=== PATIENT | female | born 1975 | race Caucasian/White ===

== ENCOUNTER 2022-03-07 12:33 | Emergency (ER) | payer OTHER, MEDICAID, SELFPAY ==
[2022-03-07 12:34] VITALS: BP 145/101; PULSE 90; RESP 14; TEMP 36.6; O2SAT 98; BMI 37.2
[2022-03-07] MEDS: Morphine 4 MG/ML Syringe IV (13:32)
--- NOTE | 2022-03-07 13:40 | RAD_ITS ---
INDICATION: Injury/Pain EXAMINATION/TECHNIQUE: X-RAY - LEFT XR Ankle Min 3 Views 3 VIEWS COMPARISON: None. FINDINGS: SOFT TISSUES: There is diffuse soft tissue swelling. No radiopaque foreign body. BONES/JOINTS: No acute fracture or subluxation.. Normal alignment. Preservation of the joint space.. There is a plantar calcaneal enthesophyte. There is an additional enthesophyte arising from the posterior calcaneus at the Achilles tendon insertion site. No sclerotic or destructive changes observed. RAD/Ankle min 3 Views IMPRESSION: Diffuse soft tissue swelling. Calcaneal enthesophytes. Electronically Signed: Janelle Parikh MD at 13:56 EST ,
[2022-03-07 13:41] LABS: Absolute Lymphocyte Count 1.67 X10^3/uL (0.83-4.51); Basophil# 0.04 X10^3/uL; Basophil% 0.5 % (0-1); Eosinophil# 0.44 X10^3/uL; Eosinophils% 5.8 % (0-5); Hematocrit 42.8 % (37-47); Hemoglobin 13.7 g/dL (12.0-15.0); Lymphocyte # 1.67 X10^3/ul (0.83-4.51); Lymphocyte % 22.2 % (19-41); Mean Corpuscular Hgb 28.4 pg (27.0-32.0); Mean Corpuscular Volume 88.8 fL (81-99); Mean Platelet Vol. 9.8 fl (6.2-12.0); Monocyte# 0.38 X10^3/uL; NRBC Flagged by Analyzer 0 % (0-5); Neutrophil # 4.97 X10^3/uL (2.7-7.7); Neutrophil % 66.1 % (47-70); Platelet Count 384 K/mm3 (150-450); RBC Distribution Width SD 45.1 fl (35.1-43.9); Red Blood Count 4.82 M/mm3 (4.2-5.4); White Blood Count 7.5 K/mm3 (4.4-11.0)
--- NOTE | 2022-03-07 13:46 | ED.VIS.LOWEX ---
HPI History of Present Illness HPI Narrative: Patient presents with left ankle swelling that began today. Patient states she has possible infection in her right hip. Patient states she had abnormal labs which may have showed an infection in her right hip. Patient is scheduled to have an outpatient procedure to have an arthrocentesis of her right hip to assess for infection. Patient is concerned that this infection may have spread to her left ankle. Patient admits to subjective fevers and chills. Patient denies any redness or warmth. Patient states she is having trouble ambulating due to the swelling. Patient denies any calf pain. Patient denies any trauma or injury. Chief Complaint: Lower Extremity Injury Onset/Context/Timing Onset: Today Context: Sudden Onset Timing: Continuous Quality of Pain: - (Swelling) Location: Left ankle Worsened by: Nothing Relieved by: Nothing Associated Symptoms Associated Symptoms: Negative for Parasthesia, Weakness or Loss of Funtion [facility] Medical History (Updated 03/07/22 @ 15:[address] Jb Loving DO) Absent kidney Absent kidney, acquired Allergy/AdvReac Type Severity Reaction Status Date / Time No Known Allergies Allergy Verified 03/07/22 12:34 Surgical History (Updated 03/07/22 @ 13:[address] Jb Loving DO) History of hysterectomy History of lumpectomy of left breast Hx of cholecystectomy Hx of shoulder surgery Hx of tubal ligation Social History Smoking Status: Unknown if ever smoked ROS ROS ED Constitutional Constitutional ED: Reports fever(s) and subjective; Denies chills Eyes Eyes: Denies blurry vision or change in vision ENT ENT ED: Denies rhinorrhea or sore throat Cardiovascular Cardiovascular: Denies chest pain or palpitations Respiratory/Chest Respiratory/Chest: Denies cough or dyspnea Gastrointestinal Gastrointestinal: Denies nausea or vomiting Genitourinary Genitourinary ED: Denies dysuria or hematuria Musculoskeletal Musculoskeletal: Reports back pain; Denies neck pain Integumentary Denies abscess or rash Neurologic Neurologic: Denies headache(s) or weakness Allergic/Immunologic Allergic/Immunologic ED: Denies mouth swelling or urticaria EXAM Physical Exam Const Vital Signs: 03/07/22 12:34 Temperature 97.8 F Temperature Source Temporal Pulse Rate 90 Respiratory Rate 14 Blood Pressure 145/101 H Blood Pressure Mean 115 Pulse Ox 98 Oxygen Delivery Method Room Air Positive well nourished, well developed and obese General Appearance ED: well developed and NAD Nutritional Appearance: obese HEENT Reports moist mucous membranes normocephalic and atraumatic Neck full ROM and supple Extremity normal to inspection and full ROM Extremity Narrative: There is trace edema of the left ankle. There is no erythema or warmth. There is good range of motion of the left ankle. There is no calf tenderness noted. Pedal pulses are equal bilaterally. Sensation was intact to light touch in all digits. Capillary refill was less than 2 seconds in all digits. Neuro oriented x3, CN's II-XII intact bilaterally, moves all extremities and no sensory deficits noted Sensorium / Orientation: alert Motor Exam: strength 5/5 throughout Psych mental status grossly normal MDM MDM MDM Narrative Medical decision making narrative: Differential diagnosis includes arthritis, muscle strain, soft tissue infection, joint infection, and occult fracture. X-rays of the left ankle will be obtained to check for occult fracture, and evidence of osteomyelitis. CBC will be obtained to assess for leukocytosis and anemia. Basic metabolic profile will be obtained to assess for electrolyte abnormality and renal function. Uric acid will be obtained to assess for possible gout. I do not see any inflammatory markers such as sed rate and CRP will be of any benefit since she has inflammatory changes in her right hip which will cause these to be elevated anyhow. Lab Data Attestation: I reviewed the patient's lab results. Lab results narrative: CBC was reviewed and was essentially within normal limits. Basic metabolic profile was reviewed and was within normal limits. Uric acid was reviewed and was normal. Labs: Laboratory Results - last 24 hr 03/07/22 03/07/22 13:35 13:35 WBC 7.5 RBC 4.82 Hgb 13.7 Hct 42.8 MCV 88.8 MCH 28.4 MCHC 32.0 RDW Std Deviation 45.1 H RDW Coeff of Hoa 14.0 Plt Count 384 MPV 9.8 Immature Gran % (Auto) 0.400 Neut % (Auto) 66.1 Lymph % (Auto) 22.2 [place] % (Auto) 5.0 Eos % (Auto) 5.8 H Baso % (Auto) 0.5 Absolute Neuts (auto) 5.0 Absolute Lymphs (auto) 1.67 Nucleated RBC % 0 Sodium 139 Potassium 4.6 Chloride 106 Carbon Dioxide 27.0 Anion Gap 6 BUN 14 Creatinine 0.72 Estim Creat Clear Calc 86.10 Est GFR (MDRD) Af Amer 114 Est GFR (MDRD) Non-Af 94 BUN/Creatinine Ratio 19.6 Glucose 96 Uric Acid 5.6 Calcium 9.8 Radiography Diagnostic Testing: Clinical Impression(s) from Imaging Studies Ankle X-Ray 03/07/22 13:40 IMPRESSION: Diffuse soft tissue swelling. Calcaneal enthesophytes. Electronically Signed: Janelle Parikh MD at 13:56 EST , X-rays of the left ankle were reviewed independently by myself. There are 3 views. There is no acute fracture or dislocation. There is no evidence of osteomyelitis. There is no effusion. There is mild soft tissue swelling. Radiologist also interpreted the x-rays and noted bone spurs on the calcaneus. Treatment and Re-Evaluation Narrative: Patient was advised of her findings. Patient was instructed to ice and elevate the left ankle. Patient was instructed to take Tylenol or ibuprofen as needed for pain. Patient was instructed to follow-up with her primary care physician and orthopedist in 5 to 7 days. Patient understood and was agreeable with the plan. All questions were answered. Discharge Plan Triage Chief Complaint: Lower Extremity Injury ED Provider: Jb Loving Dx/Rx/DC Orders Clinical Impression: Left ankle swelling, Obesity (BMI 30-39.9) Instructions: ED Ankle Sprain (Adult) Primary Care Provider: Care Physician,No Primary Referrals: Care Physician,No Primary [Primary Care Provider] - Disposition Disposition: Home, Self Care
[2022-03-07 13:55] LABS: Anion Gap 6 (5-15); BUN 14 mg/dL (7-18); BUN/Creat Ratio 19.6 RATIO (10-20); Calcium,Total 9.8 mg/dL (8.5-10.1); Chloride 106 mmol/L (98-107); Creatinine, Serum 0.72 mg/dL (0.55-1.02); EST Glomerular Filtration Rate 94 mL/min (>60); Est Glom Filt Rate - Afr Amer 114 mL/min (>60); Glucose 96 mg/dL (74-106); Potassium 4.6 mmol/L (3.5-5.1); Sodium Level 139 mmol/L (136-145); Uric Acid 5.6 mg/dL (2.6-6.0)
== END 2022-03-07 15:38 | disposition home or self-care (01) ==
PROVIDERS: Emergency Provider Emergency Medicine; Visit Provider Emergency Medicine
DX: M25.472 Effusion, left ankle (principal); E66.9 Obesity, unspecified; R68.83 Chills (without fever)
CPT/HCPCS: 73610; 80048; 84550; 85025; 96374; 99282; A4216